=== PATIENT | female | born 1965 | race Caucasian/White ===

== ENCOUNTER 2016-09-30 10:46 | Emergency (ER) | payer OTHER ==
[~2016-09-30] VITALS: Ht 182.9 cm; Wt 102.0 kg
[2016-09-30 10:51] VITALS: TEMP 36.5; Ht 182.9 cm; Wt 102.0 kg
[2016-09-30] MEDS ORDERED: FENTANYL CITRATE INJ 50 MCG/1 ML 2 ML VIAL IV STA (11:25)
[2016-09-30] MEDS ORDERED: KETOROLAC TROMETHAMINE 30 MG/ML VIAL IV STA (11:25)
[2016-09-30] MEDS ORDERED: SODIUM CHLORIDE 0.9% 1000ML 1,000 ML IV STA (11:25)
[2016-09-30] MEDS ORDERED: ONDANSETRON INJ 2 MG/ML 2 ML VIAL IV STA (11:25)
[2016-09-30 11:40] LABS: BASO % 0.4 %; BASO ABS # 0.04 K/uL (0-0.2); COMPLETE YES; EOS % 2.1 %; IG% 0.4 %; LYMPH % 23.5 %; LYMPH ABS # 2.11 K/uL (1.2-3.4); MEAN CELL VOLUME 90.5 fL (80-100); MEAN CORPUSCULAR HEMOGLOBIN 31.7 pg (25-34); MEAN PLATELET VOLUME 9.3 fL (7.4-10.4); MONO % 5.6 %; PLATELET COUNT 265 K/uL (130-400); RED BLOOD COUNT 4.64 M/uL (4.2-5.4); WHITE BLOOD COUNT 8.97 K/uL (4.8-10.8)
[2016-09-30 11:47] LABS: BUN/CREATININE RATIO 11.7 (10-20); CREATININE 1.3 mg/dl (0.60-1.20); POTASSIUM 4.4 mmol/L (3.5-5.1)
[2016-09-30 11:48] LABS: CALCIUM 9.3 mg/dl (8.5-10.1)
--- NOTE | 2016-09-30 12:12 | DIAGNOSTIC IMAGING REPORT ---
CT SCAN OF THE ABDOMEN AND PELVIS WITHOUT CONTRAST CLINICAL HISTORY: Left flank pain COMPARISON STUDY: No previous studies for comparison. TECHNIQUE: CT scan of the abdomen and pelvis was performed from the lung bases to the proximal femurs. Images are reviewed in the axial, sagittal, and coronal planes. IV contrast was not administered for this examination. CT DOSE: 1297.43 mGy.cm FINDINGS: Lower chest: There are mild bibasal atelectatic changes. Liver: The unenhanced liver is normal in size, contour, and attenuation. There is no intrahepatic biliary ductal dilatation. Gallbladder: Unremarkable. Spleen: Normal in size and attenuation. Pancreas: Unremarkable. Adrenal glands: Unremarkable. Kidneys: No renal, ureteral, or bladder calculi are visualized. Bowel: There are no transition zones indicate bowel obstruction. There is colonic diverticulosis. There are no acute peridiverticular inflammatory changes. There is no evidence of acute appendicitis. Peritoneum: There is no intraperitoneal free air or abdominal ascites. Vasculature: The abdominal aorta is normal in course and caliber. Adenopathy: None. Pelvic viscera: The bladder, and pelvic viscera are unremarkable. Skeletal structures: No destructive osseous lesions are seen. IMPRESSION: 1. No acute findings 2. No renal, ureteral, or bladder calculi identified 3. No evidence of bowel obstruction. No evidence of free air 4. Diverticulosis. No evidence of acute diverticulitis. No evidence of acute appendicitis. Electronically signed by: Stevo Adamson M.D. 09/30/2016 12:10 PM Dictated Date/Time: 09/30/2016 12:08 PM
[2016-09-30 12:46] LABS: URINE APPEARANCE CLEAR (CLEAR); URINE BILIRUBIN NEG (NEG); URINE COLOR YELLOW; URINE NITRITE NEG (NEG); URINE SPECIFIC GRAVITY 1.025 (1.000-1.030); UROBILINOGEN NEG (NEG); ZZUR CULT IF INDIC CLEAN CATCH NO
[2016-09-30 12:55] LABS: MANUAL MICROSCOPIC REQUIRED? NO; REVIEW REQ? NO
--- NOTE | 2016-09-30 13:00 | EMERGENCY ROOM VISIT NOTE ---
History Report prepared by Peter: Maribell South Under the Supervision of: Dr. Juan M Madrid D.O. First contact with patient: 11:25 Chief Complaint: FLANK PAIN Stated Complaint: PAIN IN LEFT SIDE History of Present Illness The patient is a 51 year old female who presents to the Emergency Room with complaints of persistent left flank pain that began this morning when he woke up. He currently rates his discomfort as an 8/10 in severity. The patient states that he feels that his skin feels strange where his pain is located. He states that his pain continues to worsen. The patient states that his pain worsens with movement. He denies any chest pain, rash, fever, recent illness, nausea, or vomiting. Source of History: patient Onset: this morning Position: other (left flank) Symptom Intensity: 8/10 Timing: worsening, other (persistent) Associated Symptoms: No fevers, No nausea, No rash, No vomiting Review of Systems See HPI for pertinent positives & negatives. A total of 10 systems reviewed and were otherwise negative. Past Medical & Surgical No pertinent history stated. Family History No pertinent family history stated. Social History Smoking Status: Current Every Day Smoker Marital Status: single Occupation Status: employed Current/Historical Medications Scheduled Ibuprofen (Advil), 200-600 MG PO Q4H Ranitidine (Zantac), 150 MG PO DAILY Allergies Coded Allergies: No Known Allergies (Unverified , 09/30/16) Physical Exam Vital Signs Date Time Temp Pulse Resp B/P Pulse Ox O2 Delivery O2 Flow Rate FiO2 09/30/16 13:45 71 16 156/98 95 Room Air 09/30/16 12:32 66 16 159/91 98 Room Air 09/30/16 10:51 36.5 77 18 189/107 98 Room Air Physical Exam CONSTITUTIONAL/VITAL SIGNS: Reviewed / noted above. GENERAL: Non-toxic in appearance. INTEGUMENTARY: Warm, dry, and [place]. HEAD: Normocephalic. EYES: without scleral icterus or trauma. ENT/OROPHARYNX: clear and moist. LYMPHADENOPATHY/NECK: Is supple without lymphadenopathy or meningismus. RESPIRATORY: Lungs clear and equal. CARDIOVASCULAR: Regular rate and rhythm. GI/ABDOMEN: Soft and nontender. No organomegaly or pulsatile mass. No rebound or guarding. Normal bowel sounds. EXTREMITIES: Warm and well perfused. BACK: No CVA tenderness. NEUROLOGICAL: Intact without focal deficits. PSYCHIATRIC: normal affect. MUSCULOSKELETAL: Normally developed with good muscle tone. Medical Decision & Procedures ER Provider Diagnostic Interpretation: CT results as stated below per my review and radiologist interpretation: CT SCAN OF THE ABDOMEN AND PELVIS WITHOUT CONTRAST CLINICAL HISTORY: Left flank pain COMPARISON STUDY: No previous studies for comparison. TECHNIQUE: CT scan of the abdomen and pelvis was performed from the lung bases to the proximal femurs. Images are reviewed in the axial, sagittal, and coronal planes. IV contrast was not administered for this examination. CT DOSE: 1297.43 mGy.cm FINDINGS: Lower chest: There are mild bibasal atelectatic changes. Liver: The unenhanced liver is normal in size, contour, and attenuation. There is no intrahepatic biliary ductal dilatation. Gallbladder: Unremarkable. Spleen: Normal in size and attenuation. Pancreas: Unremarkable. Adrenal glands: Unremarkable. Kidneys: No renal, ureteral, or bladder calculi are visualized. Bowel: There are no transition zones indicate bowel obstruction. There is colonic diverticulosis. There are no acute peridiverticular inflammatory changes. There is no evidence of acute appendicitis. Peritoneum: There is no intraperitoneal free air or abdominal ascites. Vasculature: The abdominal aorta is normal in course and caliber. Adenopathy: None. Pelvic viscera: The bladder, and pelvic viscera are unremarkable. Skeletal structures: No destructive osseous lesions are seen. IMPRESSION: 1. No acute findings 2. No renal, ureteral, or bladder calculi identified 3. No evidence of bowel obstruction. No evidence of free air 4. Diverticulosis. No evidence of acute diverticulitis. No evidence of acute appendicitis. Electronically signed by: Stevo Adamson M.D. 09/30/2016 12:10 PM Dictated Date/Time: 09/30/2016 12:08 PM Laboratory Results 09/30/16 11:05 Red Blood Count 4.64, Mean Corpuscular Volume 90.5, Mean Corpuscular Hemoglobin 31.7, Mean Corpuscular Hemoglobin Concent 35.0, Mean Platelet Volume 9.3, Neutrophils (%) (Auto) 68.0, Lymphocytes (%) (Auto) 23.5, Monocytes (%) (Auto) 5.6, Eosinophils (%) (Auto) 2.1, Basophils (%) (Auto) 0.4, Neutrophils # (Auto) 6.09, Lymphocytes # (Auto) 2.11, Monocytes # (Auto) 0.50, Eosinophils # (Auto) 0.19, Basophils # (Auto) 0.04 09/30/16 11:05 Test 09/30/16 11:05 09/30/16 12:20 White Blood Count 8.97 K/uL (4.8-10.8) Red Blood Count 4.64 M/uL (4.2-5.4) Hemoglobin 14.7 g/dL (12.0-16.0) Hematocrit 42.0 % (37-47) Mean Corpuscular Volume 90.5 fL (80-100) Mean Corpuscular Hemoglobin 31.7 pg (25-34) Mean Corpuscular Hemoglobin Concent 35.0 g/dl (32-36) Platelet Count 265 K/uL (130-400) Mean Platelet Volume 9.3 fL (7.4-10.4) Neutrophils (%) (Auto) 68.0 % Lymphocytes (%) (Auto) 23.5 % Monocytes (%) (Auto) 5.6 % Eosinophils (%) (Auto) 2.1 % Basophils (%) (Auto) 0.4 % Neutrophils # (Auto) 6.09 K/uL (1.4-6.5) Lymphocytes # (Auto) 2.11 K/uL (1.2-3.4) Monocytes # (Auto) 0.50 K/uL (0.11-0.59) Eosinophils # (Auto) 0.19 K/uL (0-0.5) Basophils # (Auto) 0.04 K/uL (0-0.2) RDW Standard Deviation 44.4 fL (36.4-46.3) RDW Coefficient of Variation 13.5 % (11.5-14.5) Immature Granulocyte % (Auto) 0.4 % Immature Granulocyte # (Auto) 0.04 K/uL (0.00-0.02) Anion Gap 6.0 mmol/L (3-11) Est Creatinine Clear Calc Drug Dose 66.9 ml/min Estimated GFR () 54.2 Estimated GFR (Non- 46.8 BUN/Creatinine Ratio 11.7 (10-20) Calcium Level 9.3 mg/dl (8.5-10.1) Total Bilirubin 0.4 mg/dl (0.2-1) Direct Bilirubin 0.1 mg/dl (0-0.2) Aspartate Amino Transf (AST/SGOT) 11 U/L (15-37) Alanine Aminotransferase (ALT/SGPT) 27 U/L (12-78) Alkaline Phosphatase 117 U/L (45-117) Total Protein 8.3 gm/dl (6.4-8.2) Albumin 4.2 gm/dl (3.4-5.0) Lipase 131 U/L (73-393) Urine Color YELLOW Urine Appearance CLEAR (CLEAR) Urine pH 5.0 (4.5-7.5) Urine Specific [place] 1.025 (1.000-1.030) Urine Protein 1+ (NEG) Urine Glucose (UA) NEG (NEG) Urine Ketones NEG (NEG) Urine Occult Blood NEG (NEG) Urine Nitrite NEG (NEG) Urine Bilirubin NEG (NEG) Urine Urobilinogen NEG (NEG) Urine Leukocyte Esterase NEG (NEG) Urine WBC (Auto) 1-5 /hpf (0-5) Urine RBC (Auto) 0-4 /hpf (0-4) Urine Hyaline Casts (Auto) 1-5 /lpf (0-5) Urine Epithelial Cells (Auto) 10-20 /lpf (0-5) Urine Bacteria (Auto) NEG (NEG) Laboratory results as stated above per my review. Medications Administered Medications (Trade) Dose Ordered Sig/Mayela Route Start Time Stop Time Status Last Admin Dose Admin Sodium Chloride (Nss 1000ml) 1,000 ml @ 999 mls/hr Q1H1M STAT IV 09/30/16 11:25 09/30/16 12:25 DC 09/30/16 11:33 999 MLS/HR Fentanyl Citrate (Fentanyl Inj) 100 mcg NOW STAT IV 09/30/16 11:25 09/30/16 11:26 DC 09/30/16 11:35 100 MCG Ondansetron HCl (Zofran Inj) 4 mg NOW STAT IV 09/30/16 11:25 09/30/16 11:26 DC 09/30/16 11:34 4 MG Ketorolac Tromethamine (Toradol Inj) 30 mg NOW STAT IV 09/30/16 11:25 09/30/16 11:26 DC 09/30/16 11:38 30 MG ED Course 1125: Ordered Toradol Inj 30 mg IV, Zofran Inj 4 mg IV, Fentanyl Inj 100 mcg IV , Sodium Chloride 1000 ml @ 999 mls/hr IV. 1140: Previous medical records were reviewed. The patient was evaluated in room B2. A complete history and physical examination was performed. 1300: I reevaluated the patient and he is resting comfortably. I discussed the exam findings with him and I discussed the treatment plan. He verbalized complete understanding and agreement. He is ready to go home. Medical Decision Differential considered: pancreatitis, hepatitis, or acute cholecystitis, AAA, UTI, pyelonephritis, kidney stones, appendicitis, diverticulitis, shingles, bowel obstruction mesenteric ischemia, intussusception,hernia, testicular torsion. This is a 51-year-old male who presents to the ED with a chief complaint of left flank pain. The patient states that he awoke with symptoms. He denies any other significant symptoms. No nausea or vomiting. Nothing seems to make his symptoms worse or better. Exam was unremarkable. CT scan abdomen and pelvis was negative for acute disease. CBC, complete metabolic panel were normal. Lipase is negative. Urine did not show infection. The patient was told the results. He was treated with IV Toradol, IV fentanyl, IV Zofran and IV fluids. He is felt to be stable for discharge. Impression Primary Impression: Left flank pain Scribe Attestation The scribe's documentation has been prepared under my direction and personally reviewed by me in its entirety. I confirm that the note above accurately reflects all work, treatment, procedures, and medical decision making performed by me. Departure Information Dispostion Home / Self-Care Referrals No Doctor, Assigned (PCP) Forms HOME CARE DOCUMENTATION FORM, IMPORTANT VISIT INFORMATION Patient Instructions ED Flank Pain Uncertain Cause, [facility] Additional Instructions Follow-up with your doctor for further care and evaluation in 1-2 days. Return to the emergency department for worsening or new symptoms or any concerns. You have been examined and treated today on an emergency basis only. This is not a substitute for, or an effort to provide, complete comprehensive medical care. It is impossible to recognize and treat all injuries or illnesses in a single emergency department visit. It is therefore important that you follow up closely with your doctor. Call as soon as possible for an appointment. If you develop a rash in the next several days on your left side, see your doctor or return for recheck as this could be shingles.
[2016-09-30] MEDS ORDERED: IBUP-1050 PO (13:09)
[2016-09-30] MEDS ORDERED: ZNTT/150 PO (13:09)
[2016-09-30 13:45] VITALS: BP 156/98; PULSE 71; O2SAT 95
== END 2016-09-30 13:47 | disposition home or self-care (01) ==
LOC: C.EDB 10:48
DX: R10.9 Unspecified abdominal pain (principal); F17.200 Nicotine dependence, unspecified, uncomplicated

== ENCOUNTER 2016-10-02 08:25 | Emergency (ER) | payer OTHER ==
[~2016-10-02] VITALS: Ht 182.9 cm; Wt 104.1 kg
[~2016-10-02 08:25] MED LIST: IBUP-1050 PO; ZNTT/150 PO
[2016-10-02 08:28] VITALS: TEMP 36.8; Ht 182.9 cm; Wt 104.1 kg
[2016-10-02 09:20] LABS: BASO % 0.3 %; BASO ABS # 0.02 K/uL (0-0.2); COMPLETE YES; EOS % 1.9 %; HEMATOCRIT 42.5 % (37-47); IG% 0.2 %; LYMPH % 33.2 %; LYMPH ABS # 1.97 K/uL (1.2-3.4); MEAN CELL VOLUME 89.9 fL (80-100); MEAN CORPUSCULAR HEMOGLOBIN 31.5 pg (25-34); MEAN CORPUSCULAR HGB CONC 35.1 g/dl (32-36); MEAN PLATELET VOLUME 9.2 fL (7.4-10.4); MONO % 8.8 %; NEUT % 55.6 %; PLATELET COUNT 242 K/uL (130-400); RED BLOOD COUNT 4.73 M/uL (4.2-5.4); WHITE BLOOD COUNT 5.93 K/uL (4.8-10.8)
[2016-10-02 09:35] LABS: URINE APPEARANCE CLEAR (CLEAR); URINE BILIRUBIN NEG (NEG); URINE COLOR YELLOW; URINE NITRITE NEG (NEG); URINE PH 5.5 (4.5-7.5); URINE SPECIFIC GRAVITY 1.024 (1.000-1.030); UROBILINOGEN NEG (NEG); ZZUR CULT IF INDIC CLEAN CATCH NO
[2016-10-02 09:37] LABS: MANUAL MICROSCOPIC REQUIRED? NO; REVIEW REQ? NO
[2016-10-02 09:43] LABS: BUN/CREATININE RATIO 9.5 (10-20); CALCIUM 9.1 mg/dl (8.5-10.1); CREATININE 1.3 mg/dl (0.60-1.20)
[2016-10-02] MEDS ORDERED: KETOROLAC TROMETHAMINE 30 MG/ML VIAL IV STA (09:48)
--- NOTE | 2016-10-02 10:29 | DIAGNOSTIC IMAGING REPORT ---
ABDOMEN ULTRASOUND FOR HERNIA CLINICAL HISTORY: Left-sided groin pain. COMPARISON STUDY: Abdomen and pelvis CT 09/30/2016. FINDINGS: Small reducible fat-containing left inguinal hernia. No additional hernias, masses, or fluid collections within the left anterior abdominal wall at the patient's area of pain. IMPRESSION: Small reducible fat-containing left inguinal hernia. Electronically signed by: Maik Morales M.D. 10/02/2016 10:28 AM Dictated Date/Time: 10/02/2016 10:27 AM
[2016-10-02] MEDS ORDERED: TRAM-10 PO (11:13)
[2016-10-02 11:31] VITALS: BP 130/95; PULSE 64; O2SAT 95
--- NOTE | 2016-10-02 11:41 | EMERGENCY ROOM VISIT NOTE ---
History Report prepared by Peter: Elvira Marie Under the Supervision of: Dr. Dayanna Webber D.O. First contact with patient: 09:14 Chief Complaint: ABDOMINAL PAIN Stated Complaint: LEFT SIDE PAIN AND SWELLING Nursing Triage Summary: Per patient he was seen here two days ago with left sided abd pain the pain continues and is more constant. Patient feels as though the area is swollen. Patient denies any n/v/d History of Present Illness The patient is a 51 year old female who presents to the Emergency Room with complaints of persistent abdominal pain starting 2 days ago. He states that his left side is swollen and inflamed down to his thigh. The pain worsens with walking. He has taken 3 doses of 5 ibuprofen over the last 24 hours for the pain. He denies any sore throat, cough, changes in bowel movements or urinary symptoms. He denies any incontinence. He denies any injury or strenuous activities. 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 He is not on any medications. Source of History: patient Onset: 2 days ago Position: abdomen Quality: other (swelling, inflamed) Timing: other (persistent) Modifying Factors (Worsening): other (walking) Associated Symptoms: No cough, No sorethroat, No urinary symptoms Note: Pt reports left thigh pain. Pt denies changes in bowel movements. Review of Systems See HPI for pertinent positives & negatives. A total of 10 systems reviewed and were otherwise negative. Past Medical & Surgical He denies any past medical history of health problems Family History No pertinent family history stated. Social History Smoking Status: Current Every Day Smoker Marital Status: single Occupation Status: employed Current/Historical Medications Scheduled Ranitidine (Zantac), 150 MG PO DAILY Scheduled PRN Ibuprofen (Advil), 200-600 MG PO Q4H PRN for Pain Allergies Coded Allergies: No Known Allergies (Unverified , 10/02/16) Physical Exam Vital Signs Date Time Temp Pulse Resp B/P Pulse Ox O2 Delivery O2 Flow Rate FiO2 10/02/16 11:31 64 18 130/95 95 10/02/16 10:30 90 18 165/104 100 Room Air 10/02/16 08:28 36.8 73 16 171/105 95 Room Air Physical Exam HEENT: Head - normocephalic and atraumatic Pupils are equal, round, and reactive to light. Extraocular eye muscles are intact, and sclera are anicteric. Nose - moist nasal mucosa without discharge. Mouth - moist buccal mucosa. Oropharynx is nonerythematous and there is no tonsillar exudate or edema noted. Neck: Supple; no JVD, nuchal rigidity, cervical lymphadenopathy. Heart: Regular rate and rhythm. There is a normal S1 and S2 with no murmurs, clicks, or gallops appreciated. Lungs: Clear to auscultation bilaterally with no wheezes, rales, or rhonchi. Abdomen: Soft, completely nontender, nondistended, with good bowel sounds. Some slight fullness of LLQ of abdomen while performing a sit up. There are no palpable pulsatile masses or hepatosplenomegaly. There is no guarding, rigidity , or rebound noted. Extremities: No evidence of cyanosis, clubbing, or edema. There are easily palpable peripheral pulses. Skin: warm and dry with good turgor and no rashes. Medical Decision & Procedures ER Provider Diagnostic Interpretation: Radiology results as stated below per my review and the radiologist's interpretation: ABDOMEN ULTRASOUND FOR HERNIA CLINICAL HISTORY: Left-sided groin pain. COMPARISON STUDY: Abdomen and pelvis CT 09/30/2016. FINDINGS: Small reducible fat-containing left inguinal hernia. No additional hernias, masses, or fluid collections within the left anterior abdominal wall at the patient's area of pain. IMPRESSION: Small reducible fat-containing left inguinal hernia. Electronically signed by: Maik Morales M.D. 10/02/2016 10:28 AM Dictated Date/Time: 10/02/2016 10:27 AM Laboratory Results 10/02/16 08:53 Red Blood Count 4.73, Mean Corpuscular Volume 89.9, Mean Corpuscular Hemoglobin 31.5, Mean Corpuscular Hemoglobin Concent 35.1, Mean Platelet Volume 9.2, Neutrophils (%) (Auto) 55.6, Lymphocytes (%) (Auto) 33.2, Monocytes (%) (Auto) 8.8, Eosinophils (%) (Auto) 1.9, Basophils (%) (Auto) 0.3, Neutrophils # (Auto) 3.30, Lymphocytes # (Auto) 1.97, Monocytes # (Auto) 0.52, Eosinophils # (Auto) 0.11, Basophils # (Auto) 0.02 10/02/16 08:53 Test 10/02/16 08:35 10/02/16 08:53 Urine Color YELLOW Urine Appearance CLEAR (CLEAR) Urine pH 5.5 (4.5-7.5) Urine Specific [place] 1.024 (1.000-1.030) Urine Protein NEG (NEG) Urine Glucose (UA) NEG (NEG) Urine Ketones NEG (NEG) Urine Occult Blood NEG (NEG) Urine Nitrite NEG (NEG) Urine Bilirubin NEG (NEG) Urine Urobilinogen NEG (NEG) Urine Leukocyte Esterase NEG (NEG) White Blood Count 5.93 K/uL (4.8-10.8) Red Blood Count 4.73 M/uL (4.2-5.4) Hemoglobin 14.9 g/dL (12.0-16.0) Hematocrit 42.5 % (37-47) Mean Corpuscular Volume 89.9 fL (80-100) Mean Corpuscular Hemoglobin 31.5 pg (25-34) Mean Corpuscular Hemoglobin Concent 35.1 g/dl (32-36) Platelet Count 242 K/uL (130-400) Mean Platelet Volume 9.2 fL (7.4-10.4) Neutrophils (%) (Auto) 55.6 % Lymphocytes (%) (Auto) 33.2 % Monocytes (%) (Auto) 8.8 % Eosinophils (%) (Auto) 1.9 % Basophils (%) (Auto) 0.3 % Neutrophils # (Auto) 3.30 K/uL (1.4-6.5) Lymphocytes # (Auto) 1.97 K/uL (1.2-3.4) Monocytes # (Auto) 0.52 K/uL (0.11-0.59) Eosinophils # (Auto) 0.11 K/uL (0-0.5) Basophils # (Auto) 0.02 K/uL (0-0.2) RDW Standard Deviation 44.7 fL (36.4-46.3) RDW Coefficient of Variation 13.4 % (11.5-14.5) Immature Granulocyte % (Auto) 0.2 % Immature Granulocyte # (Auto) 0.01 K/uL (0.00-0.02) Anion Gap 5.0 mmol/L (3-11) Est Creatinine Clear Calc Drug Dose 67.6 ml/min Estimated GFR () 54.2 Estimated GFR (Non- 46.8 BUN/Creatinine Ratio 9.5 (10-20) Calcium Level 9.1 mg/dl (8.5-10.1) Total Bilirubin 0.5 mg/dl (0.2-1) Aspartate Amino Transf (AST/SGOT) 13 U/L (15-37) Alanine Aminotransferase (ALT/SGPT) 28 U/L (12-78) Alkaline Phosphatase 102 U/L (45-117) Total Protein 7.9 gm/dl (6.4-8.2) Albumin 4.0 gm/dl (3.4-5.0) Globulin 3.9 gm/dl (2.5-4.0) Albumin/Globulin Ratio 1.0 (0.9-2) Lipase 109 U/L (73-393) Laboratory results per my review. Medications Administered Medications (Trade) Dose Ordered Sig/Mayela Route Start Time Stop Time Status Last Admin Dose Admin Ketorolac Tromethamine (Toradol Inj) 30 mg NOW STAT IV 10/02/16 09:48 10/02/16 09:49 DC 10/02/16 10:09 30 MG Procedure Medications: Toradol Inj 30 mg IV. ED Course 0921: The patient was evaluated in room B2. A complete history and physical examination were performed. Nursing notes and previous electronic medical records were reviewed. The patient was here 2 days ago and had a CT of his abdomen/pelvis which was negative for diverticulitis and kidney stones. Urinalysis was negative at that time. IV lock was established and labs were drawn as above Today. The patient went for an ultrasound of the abdomen looking for hernia. 0948: Toradol Inj 30 mg IV. 1053: Upon reevaluation, the patient is resting comfortably. He denies any pain at this time while sitting still. He states that he has not been up and walking around and this typically when he gets the pain. I discussed findings and results with him. He verbalized agreement of the treatment plan. He was discharged home. Medical Decision The patient is a 51 year old male who presents to the ED with abdominal pain. Differential diagnosis includes rectus abdominis muscle strain, abdominal wall hernia, left sided oblique strain, inguinal hernia, abdominal wall hernia, diverticulitis, colitis. Lab results show: negative urinalysis, creatinine 1.3 baseline for patient, glucose 104, LFTs and lipase normal. This is a 51-year-old male patient who has developed some discomfort ranging from the left upper quadrant of the abdomen, through the left lower quadrant of the abdomen, left inguinal canal, into the left anterior thigh extending down to the knee. As I mentioned above, the patient had a CT scan of the abdomen/ pelvis to rule out the possibility of a stone or diverticulitis. Since the patient's pain is so diffuse extending from the intra-abdominal area through the pelvis into the left leg, I felt this most likely represented a musculoskeletal problem. The patient has no pain at rest but does have discomfort when he is up moving around. Baseline laboratory studies were performed again. I reviewed his baseline renal insufficiency. They were essentially unchanged from a couple of days ago. I offered to have case management give him a list of available physicians since he does not have a primary care doctor. He explained that he would take care of this on his own and plans to follow-up with one of the [facility] PCPs. In an effort to have the patient not take too many NSAIDs, I've given the patient prescription for tramadol. The patient was instructed to return here to the emergency department in the event that he has worsening symptoms such as fevers, worsening pain, diarrhea, back pain, or difficulty urinating. [place] Drug Monitoring Program Search Results: patient reviewed within database, no issues identified Impression Primary Impression: LLQ abdominal pain Additional Impression: Left thigh pain Scribe Attestation The scribe's documentation has been prepared under my direction and personally reviewed by me in its entirety. I confirm that the note above accurately reflects all work, treatment, procedures, and medical decision making performed by me. Departure Information Dispostion Home / Self-Care Referrals No Doctor, Assigned (PCP) Forms Call Back Authorization, HOME CARE DOCUMENTATION FORM, IMPORTANT VISIT INFORMATION Patient Instructions My [facility] [email or web address] Additional Instructions Rest. No strenuous activity Tramadol for pain - 1 tab. every 4 hours Return to the ER if pain worsens or you develop more symptoms. If you develop more pain in your left groin, you may need to follow up with a surgeon about the small inguinal hernia Establish with a PCP at [facility] as you discussed Problem Qualifiers
== END 2016-10-02 11:33 | disposition home or self-care (01) ==
LOC: C.EDB 08:27
DX: R10.32 Left lower quadrant pain (principal); M79.652 Pain in left thigh; F17.200 Nicotine dependence, unspecified, uncomplicated